=== PATIENT | male | born 1990 | race African-American/Black ===

== ENCOUNTER 2017-01-17 21:58 | Emergency (ER) | payer OTHER ==
--- NOTE | ~2017-01-17 | CT71 ---
[facility] A Service [facility] RADIOLOGY TEXT RESULTS PATIENT: PHILIP PEOPLES LOCATION: [place] : [birth year] UNIT #: [id number] AGE: [address]: Remington Sharp MD SEX: M ORDER DR: [id number] [address] [address] [id number] E MR#: [id number] Acc #: [id number] NAME: PHILIP PEOPLES : 1990 SEX: M STUDY DATE/TIME: 01/18/2017 0:39 UNIT: [place] ROOM: STUDY DESCRIPTION: CT Head Wo Contrast Attending Physician: Remington Sharp M.D. Ordering Physician: Remington Sharp M.D. Primary Care Physician: Primary Care Physician No MEDICAL IMAGING REPORT This report is preliminary unless electronic signature is present EXAM CT head without contrast INDICATION Headache, dizziness and nausea since Tuesday of last week. PROCEDURE Unenhanced CT of the head. This CT exam was performed with one or more of the following radiation dose reduction techniques: automatic exposure control, adjustment of mA and/or kV according to patient size, and iterative reconstruction. COMPARISON None FINDINGS No acute hemorrhage, abnormal mass effect, extraaxial fluid collection or hydrocephalus. No calvarial fracture. Paranasal sinuses and mastoid air cells are clear. IMPRESSION No acute intracranial findings. Dictated by... Tc Gutierrez M.D. THIS IS AN ELECTRONICALLY VERIFIED REPORT Tc Gutierrez M.D. at 01/18/2017 9:54 PM ALEXANDER/essie TD: 01/18/2017 11:59 JOB #: [id number] [facility] A Service [facility] RADIOLOGY TEXT RESULTS PATIENT: PHILIP PEOPLES LOCATION: [facility] : [birth year] UNIT #: [id number] AGE: [address]: Remington Sharp MD SEX: M ORDER DR: MEDICAL IMAGING REPORT Page 1 of 1 COPY
== END 2017-01-18 01:51 | disposition home or self-care (01) ==
LOC: CED 21:58
DX: F07.81 Postconcussional syndrome (principal); W22.8XXA Striking against or struck by other objects, initial encounter; Y93.89 Activity, other specified; Y92.69 Other specified industrial and construction area as the place of occurrence of the external cause
CPT/HCPCS: 70450; 99284

== ENCOUNTER 2017-01-20 04:21 | Emergency (ER) | payer OTHER ==
--- NOTE | ~2017-01-20 | CT71 ---
[facility] A Service [facility] RADIOLOGY TEXT RESULTS PATIENT: PHILIP PEOPLES LOCATION: [facility] : [birth year] UNIT #: [id number] AGE: [address]: ARMIN FERRERA APRN SEX: M ORDER DR: [id number] [place], [place] [address] [id number] E MR#: [id number] Acc #: [id number] NAME: PHILIP PEOPLES : 1990 SEX: M STUDY DATE/TIME: 01/20/2017 4:51 UNIT: [place] ROOM: STUDY DESCRIPTION: CT Head Wo Contrast Attending Physician: Armin Ferrera Aprn Ordering Physician: Armin Ferrera Aprn Primary Care Physician: Primary Care Physician No MEDICAL IMAGING REPORT This report is preliminary unless electronic signature is present EXAM CT head without contrast INDICATION Dizziness and headache tonight. PROCEDURE Unenhanced CT of the head. This CT examination was performed with one or more of the following radiation dose reduction techniques: automatic exposure control, adjustment of mA and/or kV according to patient size, and iterative reconstruction. COMPARISON 01/18/2017. FINDINGS No acute hemorrhage, abnormal mass effect, extraaxial fluid collection or hydrocephalus. No depressed calvarial fracture. The paranasal sinuses and mastoid air cells are clear. IMPRESSION No acute intracranial findings. Dictated by... Tc Gutierrez M.D. THIS IS AN ELECTRONICALLY VERIFIED REPORT Tc Gutierrez M.D. at 01/20/2017 10:28 PM EED/darline TD: 01/20/2017 05:59 JOB #: [id number] [facility] A Service [facility] RADIOLOGY TEXT RESULTS PATIENT: PHILIP PEOPLES LOCATION: [facility] : [birth year] UNIT #: [id number] AGE: [address]: ARMIN FERRERA APRN SEX: M ORDER DR: MEDICAL IMAGING REPORT Page 1 of 1 COPY
== END 2017-01-20 05:50 | disposition home or self-care (01) ==
LOC: CED 04:21
DX: F07.81 Postconcussional syndrome (principal); F17.210 Nicotine dependence, cigarettes, uncomplicated
CPT/HCPCS: 70450; 99284

== ENCOUNTER 2017-01-30 22:09 | Emergency (ER) | payer OTHER | END 2017-01-31 00:40 | disposition home or self-care (01) | LOC: CED 22:09 | DX: F07.81 Postconcussional syndrome (principal); F17.200 Nicotine dependence, unspecified, uncomplicated | CPT/HCPCS: 99284 ==